=== PATIENT | male | born 1955 | race Caucasian/White ===

== ENCOUNTER 2019-10-04 16:25 | Observation (INO) | payer MEDICARE ==
[~2019-10-04 16:25] MED LIST: Iopamidol-370 76% 500 ML 1 ML ONE
--- NOTE | 2019-10-04 16:35 | CT ---
CT PET noncontrast HISTORY: Altered mental status. FINDINGS: There is no evidence of acute intracranial hemorrhage or infarct. The ventricles appear nor mal in size, shape and position. There is no mass effect or shift of midline structures. Visualized paranasal sinuses remain well aerated. Calcification within the arterial structures the brain base. IMPRESSION: No acute intracranial abnormalities are demonstrated on noncontrast CT head. Atherosclerosis. Findings were called Dr. Choudhary emergency department at 1629 hours. Code CR.
[2019-10-04 16:49] LABS: #Basophils 0.1 thou/uL (0.0-0.2); #Eosinphils 0.1 thou/uL (0.0-0.7); #Lymphocytes 1.1 thou/uL (1.20-3.40); #Monocytes 0.5 thou/uL (0.11-0.59); #Neutrophils 6.2 thou/uL (1.40-6.50); %Basophils 0.9 % (0.0-1.0); %Eosinophils 1.7 % (0.0-10.0); %Lymphocytes 13.5 % (21.0-51.0); %Monocytes 5.6 % (0.0-10.0); %Neutrophils 78.3 % (42.0-75.0); Hemoglobin 13.6 g/dL (14.0-18.0); Mean Corpuscular Volume 94.3 fL (78.0-98.0); Mean Platelet Volume 6.9 fL (7.4-10.4); Platelet Count 216 thou/uL (130-400); RBC Distribution Width 12.3 % (11.5-14.5); Red Blood Cell (RBC) Count 4.11 mill/uL (4.70-6.10); White Blood Cell (WBC) Count 7.9 thou/uL (4.8-10.8)
--- NOTE | 2019-10-04 16:51 | CT ---
CT arteriogram neck with IV contrast and 3-D imaging CT arteriogram head with IV contrast and 3-D imaging CT brain with IV contrast HISTORY: Memory loss. Patient is unable to form new memories. FINDINGS:: There is good contrast opacification at the aortic arch with normal branching of the great vessels. Calcification within the arterial structures including the carotid bifurcations. There is good flow into each carotid and vertebral system. [place] of [place] is intact. Good flow into each cerebral and cerebellar system. No abnormal enhancing brain lesions evident. IMPRESSION: Atherosclerosis. No acute vascular abnormalities are demonstrated.
[2019-10-04 16:54] LABS: PTT 27.5 SEC (22.9-36.1); Prothrombin Time 13.7 SEC (12.0-14.7)
[2019-10-04 16:55] LABS: INR-International Normal Ratio 1.1
[2019-10-04] MEDS ORDERED: Aspirin Chewable 81 MG TAB ONE (16:59)
[2019-10-04 17:04] LABS: ALT (SGPT) 28 U/L (8-55); AST (SGOT) 17 U/L (5-34); Alkaline Phosphatase 38 U/L (40-110); Anion Gap 13 mmol/L (10-20); BUN (Urea Nitrogen) 21 mg/dL (8.4-25.7); Bilirubin, Total 0.4 mg/dL (0.2-1.2); CK (CPK) 71 U/L (30-200); Calc. Creatinine Clearance 0 mL/min (70-130); Carbon Dioxide 23 mmol/L (23-31); Chloride 105 mmol/L (98-107); Estimated GFR-MDRD 72; Globulin 2.4 g/dL (2.4-3.5); Glucose 93 mg/dL (80-115); Potassium 4.2 mmol/L (3.5-5.1); Protein, Total 6.4 g/dL (5.8-8.1); Sodium 137 mmol/L (136-145)
[2019-10-04] MEDS ORDERED: Lorazepam 1 MG TAB PO PRN (18:26)
--- NOTE | 2019-10-04 18:31 | PDOC.HHP ---
Hospitalist HPI - History of Present Illness Confusion/amnesia History of Present Illness: Patient was brought to the ED by his due to concern over sudden confusion/ amnesia and repetitive speech. Most of the history obtained by his , patient near baseline at present but does not recall events earlier today. The last thing he recalls is coming in to the ED via ambulance. According to his they woke up and had breakfast. He has not taken his medications yet and only took his Cialis. states they were intimate and he complained of a mild headache. They both got ready and dressed and he suddenly approached he asking several questions regarding what had happened the morning. He did not recall if he took his medications, if he ate, if he took a nap. states he became anxious and emotional. She contact the [place] clinic physician who advised her to call EMS. He did not recall his address and unable to follow commands when she asked him to get dressed. She denies noting any slurred speech. No gait disturbances. Since arriving to the ED he has continued to repeat questions about taking his medications today but is otherwise back to baseline. Patient denies any complaints at present. ED Course: EKG done in ED showed NSR, HR 66. No ST changes or T wave abnormalities. CT Brain: There is no evidence of acute intracranial hemorrhage or infarct. The ventricles appear nor mal in size, shape and position. There is no mass effect or shift of midline structures. Visualized paranasal sinuses remain well aerated. Calcification within the arterial structures the brain base. IMPRESSION: No acute intracranial abnormalities are demonstrated on noncontrast CT head. Atherosclerosis. CTA Head/Neck: There is good contrast opacification at the aortic arch with normal branching of the great vessels. Calcification within the arterial structures including the carotid bifurcations. There is good flow into each carotid and vertebral system. [place] of [place] is intact. Good flow into each cerebral and cerebellar system. No abnormal enhancing brain lesions evident. IMPRESSION: Atherosclerosis. No acute vascular abnormalities are demonstrated. WBC 7.9, Hgb 13.6, Hct 38.8, Platelets 216, Neutrophils 78.3% Na+ 137, K+ 4.2, BUN 21, Creat 1.03, GFR 72, CK 71 LFTs normal. Urinalysis unremarkable. Given 325 mg of aspirin. Hospitalist ROS - Review of Systems Constitutional: denies: fever, chills, sweats, weakness, malaise, other Eyes: denies: pain, vision change, conjunctivae inflammation, eyelid inflammation, redness, other ENT: denies: ear pain, ear discharge, nose pain, nose discharge, nose congestion , mouth pain, mouth swelling, throat pain, throat swelling, other Respiratory: denies: cough, dry, shortness of breath, hemoptysis, SOB with excertion, pleuritic pain, sputum, wheezing, other Cardiovascular: denies: chest pain, palpitations, orthopnea, paroxysmal noc. dyspnea, edema, light headedness, other Gastrointestinal: denies: nausea, vomiting, abdominal pain, diarrhea, constipation, melena, hematochezia, other Genitourinary: denies: dysuria, frequency, incontinence, hematuria, retention, other Musculoskeletal: denies: neck pain, shoulder pain, arm pain, back pain, hand pain, leg pain, foot pain, other Skin: denies: rash, lesions, jah, bruising, other Neurological: reports: confusion. denies: weakness, numbness, incoordination, change in speech, seizures, other Hospitalist History - Past Medical History Source: patient, family, RN notes reviewed Cardiac: reports: CAD, HTN, Hyperlipidemia - Past Surgical History Past Surgical History: reports: Other (Heart stent) - Social History Smoking Status: Never smoker Alcohol: reports: Heavy (3-4 glasses of max a day) Drugs: reports: none Living Situation: With Family Activity level: independent ambulation - Exam General Appearance: NAD, awake alert General - other findings: Facial flushing Eye: PERRL, anicteric sclera ENT: normocephalic atraumatic, no oropharyngeal lesions, moist mucosa ENT - other findings: Rhinophyma Neck: supple Heart: RRR, no murmur, no gallops, normal peripheral pulses Respiratory: CTAB, no wheezes, no rales, no ronchi, normal chest expansion, no tachypnea Gastrointestinal: soft, non-tender, non-distended, normal bowel sounds, no palpable masses, no hepatomegaly, no guarding, no rigidity Extremities: no clubbing, no edema Skin: normal turgor, no lesions Neurological: cranial nerve grossly intact, normal sensation to touch, no weakness, no focal deficits, no new deficit Musculoskeletal: normal tone, normal strength, no muscle wasting Psychiatric: normal affect, normal behavior, A&O x 3, oriented to person (Able to follow commands, difficulty recollecting events prior to coming into ED.) Hospitalist Results - Labs Result Diagrams: 10/04/19 16:36 10/04/19 16:36 Lab results: WBC 7.9 thou/uL (4.8-10.8) 10/04/19 16:36 Hgb 13.6 g/dL (14.0-18.0) L 10/04/19 16:36 Hct 38.8 % (42.0-52.0) L 10/04/19 16:36 MCV 94.3 fL (78.0-98.0) 10/04/19 16:36 Plt Count 216 thou/uL (130-400) 10/04/19 16:36 Neutrophils % 78.3 % (42.0-75.0) H 10/04/19 16:36 Sodium 137 mmol/L (136-145) 10/04/19 16:36 Potassium 4.2 mmol/L (3.5-5.1) 10/04/19 16:36 Chloride 105 mmol/L (98-107) 10/04/19 16:36 Carbon Dioxide 23 mmol/L (23-31) 10/04/19 16:36 BUN 21 mg/dL (8.4-25.7) 10/04/19 16:36 Creatinine 1.03 mg/dL (0.7-1.3) 10/04/19 16:36 Glucose 93 mg/dL (80-115) 10/04/19 16:36 Calcium 9.0 mg/dL (7.8-10.44) 10/04/19 16:36 Total Bilirubin 0.4 mg/dL (0.2-1.2) 10/04/19 16:36 AST 17 U/L (5-34) 10/04/19 16:36 ALT 28 U/L (8-55) 10/04/19 16:36 Alkaline Phosphatase 38 U/L (40-110) L 10/04/19 16:36 Creatine Kinase 71 U/L (30-200) 10/04/19 16:36 Troponin I 0.013 ng/mL (< 0.028) 10/04/19 16:36 Serum Total Protein 6.4 g/dL (5.8-8.1) 10/04/19 16:36 Albumin 4.0 g/dL (3.4-4.8) 10/04/19 16:36 Hospitalist H&P A/P - Problem (1) Transient amnesia Code(s): R41.3 - OTHER AMNESIA Status: Acute (2) Heavy alcohol use Code(s): Z78.9 - OTHER SPECIFIED HEALTH STATUS Status: Chronic (3) Hypertension Code(s): I10 - ESSENTIAL (PRIMARY) HYPERTENSION Status: Acute (4) CAD (coronary artery disease) Code(s): I25.10 - ATHSCL HEART DISEASE OF [place] CORONARY ARTERY W/O ANG PCTRS Status: Chronic (5) History of heart artery stent Code(s): Z95.5 - PRESENCE OF CORONARY ANGIOPLASTY IMPLANT AND GRAFT Status: Chronic (6) Hyperlipidemia Code(s): E78.5 - HYPERLIPIDEMIA, UNSPECIFIED Status: Chronic - Plan Plan: MRI brain Consult neuro Echo. Cardiac monitoring. UDS/UA pending. Additional labs: TSH, Folate/Vit B12, Ammonia, Mg, BNP Gentle hydration. ASE protocol. Ativan 1 mg PO prn. Monitor BP and resume home medications once verified. CODE STATUS: FULL. Surrogate decision maker is his : Carlos Stevenson.
[2019-10-04 18:40] LABS: Amphetamine Not Detected (NotDetected); Barbiturates Screen Not Detected (NotDetected); Benzodiazepine Screen Not Detected (NotDetected); Cocaine Metabolite Screen Not Detected (NotDetected); Medtox Control Line Valid? VALID (VALID); Medtox Reader # READER 1; Methadone Not Detected (NotDetected); Methamphetamine Not Detected (NotDetected); Opiate Screen Not Detected (NotDetected); Oxycodone Screen Not Detected (NotDetected); Phencyclidine (PCP) Not Detected (NotDetected); THC/Cannabinoid Screen Not Detected (NotDetected); Tricyclic Screen Not Detected (NotDetected)
[2019-10-04 19:05] LABS: Thyroid Stimulating Hormone 1.6319 uIU/mL (0.35-4.94)
[2019-10-04] MEDS ORDERED: Atorvastatin Calcium 40 MG TAB PO SCH (21:00)
[2019-10-04] MEDS ORDERED: Acetaminophen 325 MG TAB PO PRN (22:26)
[2019-10-04] MEDS ORDERED: Ondansetron ODT 4 MG TAB SL PRN (22:26)
[2019-10-04] MEDS ORDERED: Ondansetron PF 4 MG/2 ML Vial IVP PRN (22:26)
[2019-10-05 00:40] VITALS: BMI 23.9
[2019-10-05 05:02] LABS: Cardiac Risk 2.9 (Less than 4.5)
[2019-10-05 05:18] LABS: Bilirubin Negative (Negative); Blood, Urine Negative (Negative); Clarity Clear (Clear); Glucose, Urine (Dipstick) Normal (Negative); Leukocyte Negative Leu/uL (Negative); Nitrite Negative (Negative); Protein, Urine (Dipstick) Negative (Neg-Trace); Urobilinogen Normal mg/dL (Less than 2)
[2019-10-05] MEDS ORDERED: Losartan 25 MG TAB PO SCH (09:00)
[2019-10-05] MEDS ORDERED: Atenolol 25 MG TAB PO SCH (09:00)
[2019-10-05] MEDS ORDERED: Aspirin 81 mg Enteric Coated Tablet PO SCH (09:00)
--- NOTE | 2019-10-05 11:10 | MRI ---
MRI BRAIN WITHOUT CONTRAST: INDICATION: Transient amnesia. FINDINGS: Ventricles have normal size and position. There is no evidence of restricted diffusion. No evidence of mass or edema. No significant white matter abnormality. Intracranial internal carotid arteries, proximal cerebral arteries, basilar artery, and dural venous sinuses all show expected flow voids. Paranasal sinuses and mastoids appear clear. IMPRESSION: Unremarkable MRI of brain. POS: [facility]
--- NOTE | 2019-10-05 12:45 | PDOC.HOSPP ---
- Subjective Encounter Date: 10/05/19 Encounter Time: 07:30 - Objective Vital Signs & Weight: Vital Signs (12 hours) Temp Pulse Resp BP BP Pulse Ox 10/05/19 11:33 97.7 F 60 16 147/78 H 94 L 10/05/19 09:49 57 L 137/73 10/05/19 07:37 98 F 57 L 16 137/73 96 10/05/19 04:00 98 F 60 18 97 10/05/19 03:56 60 126/74 Weight Weight 162 lb 3.2 oz I&O: 10/04/19 10/05/19 10/06/19 06:59 06:59 06:59 Intake Total 280 Balance 280 Result Diagrams: 10/04/19 16:36 10/04/19 16:36 Additional Labs: Accuchecks 10/04/19 16:40 POC Glucose 81 Radiology Reviewed by me: Yes EKG Reviewed by me: Yes Hospitalist ROS - Review of Systems ENT: denies: ear pain, ear discharge, nose pain, nose discharge, nose congestion , mouth pain, mouth swelling, throat pain, throat swelling, other Respiratory: denies: cough, dry, shortness of breath, hemoptysis, SOB with excertion, pleuritic pain, sputum, wheezing, other Cardiovascular: denies: chest pain, palpitations, orthopnea, paroxysmal noc. dyspnea, edema, light headedness, other Gastrointestinal: denies: nausea, vomiting, abdominal pain, diarrhea, constipation, melena, hematochezia, other Genitourinary: denies: dysuria, frequency, incontinence, hematuria, retention, other - Medication Medications: Active Medications Generic Name Dose Route Start Last Admin Trade Name Daltonq PRN Reason Stop Dose Admin Aspirin 81 mg 10/05/19 09:00 10/05/19 09:48 Ecotrin PO 81 mg DAILY MATTY Administration Atenolol 12.5 mg 10/05/19 09:00 10/05/19 09:49 Tenormin PO 12.5 mg DAILY MATTY Administration Atorvastatin Calcium 40 mg 10/04/19 21:00 10/05/19 00:52 Lipitor PO Not Given HS MATTY Losartan Potassium 25 mg 10/05/19 09:00 10/05/19 09:49 Cozaar PO 25 mg DAILY MATTY Administration Sodium Chloride 10 ml 10/04/19 18:25 10/05/19 09:53 Flush - Normal Saline IVF 10 ml PRN PRN Administration Saline Flush - Exam General Appearance: NAD, awake alert Eye: PERRL, anicteric sclera ENT: normocephalic atraumatic, no oropharyngeal lesions Neck: supple, symmetric, no JVD, no thyromegaly Heart: RRR, no murmur, no gallops, no rubs Respiratory: CTAB, no wheezes, no rales, no ronchi Gastrointestinal: soft, non-tender, non-distended, normal bowel sounds Extremities: no cyanosis, no clubbing, no edema Skin: normal turgor, no lesions Neurological: no focal deficits Musculoskeletal: normal tone, normal strength Psychiatric: normal affect, normal behavior Hosp A/P (1) Transient amnesia Code(s): R41.3 - OTHER AMNESIA Status: Acute (2) Hypertension Code(s): I10 - ESSENTIAL (PRIMARY) HYPERTENSION Status: Chronic (3) CAD (coronary artery disease) Code(s): I25.10 - ATHSCL HEART DISEASE OF [place] CORONARY ARTERY W/O ANG PCTRS Status: Chronic (4) Heavy alcohol use Code(s): Z78.9 - OTHER SPECIFIED HEALTH STATUS Status: Chronic (5) History of heart artery stent Code(s): Z95.5 - PRESENCE OF CORONARY ANGIOPLASTY IMPLANT AND GRAFT Status: Chronic (6) Hyperlipidemia Code(s): E78.5 - HYPERLIPIDEMIA, UNSPECIFIED Status: Chronic - Plan old records reviewed/req, plan discussed w/ family all work up negative so far echo pending neuro to see
[2019-10-05 15:35] VITALS: BP 126/77; TEMP 97.6
--- NOTE | 2019-10-06 07:50 | DIS ---
DATE OF ADMISSION: 10/04/2019 DATE OF DISCHARGE: 10/05/2019 PRIMARY CARE PHYSICIAN: [facility] Call admission. DISCHARGE DISPOSITION: Home. PRIMARY DISCHARGE DIAGNOSIS: Transient global amnesia. SECONDARY DISCHARGE DIAGNOSIS: Hypertension, dyslipidemia, alcohol abuse, coronary artery disease. PRIMARY PROCEDURE/OPERATION: None. RADIOLOGICAL INVESTIGATION: CT brain normal. CT [place] of [place] negative. MRI brain normal. Echocardiography normal EF. SIGNIFICANT LABORATORY DATA: Hemoglobin 13.6, INR 1.1, creatinine 1.03, LDL 34, folate 11.8, ammonia 14, urinalysis normal. Urine drug screen negative. DISCHARGE MEDICATIONS: 1. Aspirin 81 mg daily. 2. Tenormin 12.5 mg daily. 3. Losartan 25 mg p.o. daily. 4. Crestor 20 mg p.o. at bedtime. CONTRAINDICATION: None. CODE STATUS: Full code. INPATIENT ORTHOPEDIC PODIATRIST: Dr. Sony Packer, Neurology. TEST RESULTS PENDING ON DISCHARGE: None. ALLERGIES: NO KNOWN DRUG ALLERGIES. DISCHARGE PLAN: Posthospital, the patient is instructed to follow up with primary care physician and Neurology. HOSPITAL COURSE: A 64-year-old male, who was admitted by Lynnette Parra. Please see her H and P for further details. At home, the patient was having acute confusion with memory loss for a short period of time, but the patient was not having any focal motor or sensory symptoms and when he was brought to emergency room, his symptoms were resolved, but the patient was not able to recall that particular time period. Clinical history was consistent with transient global amnesia. Emergency Room workup, CT brain and CT [place] negative. Subsequently, we did MRI brain and echocardiography that was also unremarkable. The patient was completely normal, and he wanted to go home and that is why we a discharge him with previous medication. He will follow up with Neurology. Overall, the patient is medically stable for discharge. Please see my progress note from that day. Job ID: [id number]
== END 2019-10-05 18:00 | disposition home or self-care (01) ==
LOC: ERS 16:25 → ERHOLD 18:02 → 2SE 22:14
PROVIDERS: ADMIT Internal Medicine; ATTEND Internal Medicine
DX: G45.4 Transient global amnesia (principal); I10 Essential (primary) hypertension; E78.5 Hyperlipidemia, unspecified; F10.10 Alcohol abuse, uncomplicated; I25.10 Atherosclerotic heart disease of native coronary artery without angina pectoris; I70.90 Unspecified atherosclerosis; Z72.89 Other problems related to lifestyle; Z79.82 Long term (current) use of aspirin; Z79.899 Other long term (current) drug therapy; Z95.5 Presence of coronary angioplasty implant and graft
CPT/HCPCS: 70450; 70496; 70498; 70551; 80061; 80306; 80307; 81003; 82140; 82550; 82607; 82746; 82962; 83735; 83880; 84484; 85610; 85730; 93005; 93306; 94760; 99285; G0378 ×3; 36415; 36416; 80053; 84443; 85025; Q9967